=== PATIENT | female | born 1980 | race Caucasian/White ===

== ENCOUNTER 2016-10-11 08:05 | Emergency (ER) | payer OTHER ==
[~2016-10-11] VITALS: Ht 167.6 cm; Wt 86.2 kg
[~2016-10-11 08:05] MED LIST: 'PARAFON FORTE500 M1 PO; HYDROCODONE BIT1 T11 PO; NAPROSYN500 MG PO
[2016-10-11] MEDS ORDERED: NEURONTIN600 MG PO (08:12)
[2016-10-11] MEDS ORDERED: IBUPROFEN600 MG PO (09:11)
[2016-10-11] MEDS ORDERED: CYCLOBENZAPRINE10 MG PO (09:11)
== END 2016-10-11 09:24 | disposition home or self-care (01) ==
LOC: ED 08:05
DX: S30.0XXA Contusion of lower back and pelvis, initial encounter (principal); F17.200 Nicotine dependence, unspecified, uncomplicated; Z88.0 Allergy status to penicillin; Z88.6 Allergy status to analgesic agent; W22.8XXA Striking against or struck by other objects, initial encounter; Y93.89 Activity, other specified; Y92.89 Other specified places as the place of occurrence of the external cause; Y99.8 Other external cause status

== ENCOUNTER 2020-03-25 14:39 | Emergency (ER) | payer OTHER ==
[~2020-03-25] VITALS: Ht 167.6 cm; Wt 96.6 kg
[~2020-03-25 14:39] MED LIST changes: +CYCLOBENZAPRINE10 MG PO; +IBUPROFEN600 MG PO; +NEURONTIN600 MG PO
== END 2020-03-25 17:58 | disposition home or self-care (01) ==
LOC: ED 14:39
DX: Z04.3 Encounter for examination and observation following other accident (principal); Z88.0 Allergy status to penicillin; Z88.8 Allergy status to other drugs, medicaments and biological substances; Z79.899 Other long term (current) drug therapy; W19.XXXA Unspecified fall, initial encounter; Y93.89 Activity, other specified; Y92.89 Other specified places as the place of occurrence of the external cause; Y99.8 Other external cause status